=== PATIENT | female | born 1990 | race African-American/Black ===

== ENCOUNTER 2016-07-29 09:21 | Emergency (ER) | payer OTHER ==
[~2016-07-29] VITALS: Ht 152.4 cm; Wt 68.9 kg
--- NOTE | 2016-07-29 09:44 | ED CARDIAC/CP/PALPITATIONS ---
History of Present Illness General Chief Complaint: General Adult Stated Complaint: CHEST PRESSURE, DIZZINESS Allergies Coded Allergies: NO KNOWN ALLERGIES (02/25/12) Triage Note: 26 Y/O FEMALE C/O UPPER CHEST PAIN (CENTER); ONSET THIS AM AND CONSTANT ("SHARP") SINCE ONSET. STATES SHE WAS AT WORK AND FELT VERY DIZZY WELL. CURRENTLY 33 WEEKS , EDC 09/15/16; OB DR CHAVEZ. DENIES ANY BUSINESS LIAISON OFFICER COMPLAINTS. *SPOKE WITH FLOR IN CBC, PT TO REMAIN IN ED; PLEASE CALL CBC BACK IF FHT'S NEEDED Onset: Abrupt Duration: hour(s): (1) Timing: single episode today Quality/Severity: pressure, sharp Location: substernal Radiation: no radiation Activities at Onset: STANDING AT WORK Prior Chest Pain/Card Workup: no prior chest pain Aspirin Today: no aspirin today Associated Symptoms: dizziness, NEAR SYNCOPE : Yes Patient currently breastfeeds: No (YOVANY BRUMFIELD,SEBASTIAN) General Source: patient, family Exam Limitations: no limitations Vital Signs & Intake/Output Vital Signs & Intake/Output Vital Signs Date Time Temp Pulse Resp B/P Pulse O2 O2 Flow FiO2 Ox Delivery Rate 07/29 1544 97.7 74 18 97/77 100 Room Air 07/29 1422 90 16 90/55 99 Room Air 07/29 1224 97.6 83 16 98/62 99 Room Air 07/29 1212 78 16 104/56 100 Room Air 07/29 0932 96.9 80 18 110/76 96 Room Air Reconcile Medications Pnv#26/Iron Poly/FA/Dha (Vitafol-One Capsule) 29 MG IRON-1 MG-200 MG CAPSULE 1 TAB PO DAILY (Reported) Triage Nurses Notes Reviewed? yes HPI: This is a 26-year-old female, , 33 weeks presented to emergency room with chief complaint of chest pain and dizziness. Patient complains of worst chest pain started this morning, substernal, 7/10, sharp, nonradiating to arm or shoulders, lasted for an hour. Associated with shortness of breath, dizziness and lightheadedness. No sweating or diaphoresis. No nausea, vomiting, abdominal pain. She describes this pain as the worst pain ever. Off note she has heartburn and this pain is entirely different for her. She reported one more episode of chest pain on 07/27/2016 morning which lasted for 1 hour, central, sharp, nonradiating, 3/10. She denies any calf tenderness, leg pain, swelling of extremities. offers no other complaints. No vaginal bleed, has been following with her it solutions sales consultant regularly. (AZAR PEREA MD) Past History Travel History Traveled to [place] past 21 day No Medical History Neurological: NONE EENT: NONE Cardiovascular: NONE Respiratory: NONE Gastrointestinal: NONE Hepatic: NONE Renal: NONE Musculoskeletal: NONE Psychiatric: NONE Endocrine: NONE Blood Disorders: NONE Cancer(s): NONE CONTROLS ENGINEER/Reproductive: NONE Surgical History Surgical History: non-contributory Psychosocial History What is your primary language Luxembourgish Tobacco Use: Never used Family History Hx Contributory? No (SEBASTIAN PEDROZA MD) Medical History Any Pertinent Medical History? none Surgical History Surgical History: none Family History Hx Contributory? Yes (AZAR PEREA MD) Review of Systems Review of Systems Constitutional: Denies: chills, diaphoresis, fever, malaise, weakness, unexplained weight loss. EENTM: Denies: double vision, visual changes, eye pain, hearing changes, epistaxis, nasal pain, throat pain. Respiratory: Reports: short of breath. Denies: cough, hemoptysis, orthopnea, sputum production, stridor, wheezing. Cardiovascular: Reports: chest pain. Denies: edema, orthopena, palpitations, peripheral edema, syncope. GI: Denies: constipation, diarrhea. Genitourinary: Denies: frequency, hesitation. Musculoskeletal: Denies: joint pain, muscle pain. Skin: Denies: rash. (AZAR PEREA MD) Physical Exam Core Measures ACS in differential dx? No Severe Sepsis Present: No Septic Shock Present: No (SEBASTIAN PEDROZA MD) Physical Exam General Appearance: well developed/nourished, no apparent distress, alert, awake Head: atraumatic, normal appearance Neck: normal inspection, supple Respiratory: normal breath sounds Cardiovascular: regular rate/rhythm Gastrointestinal: normal bowel sounds, soft, non-tender Extremities: normal inspection, no edema (AZAR PEREA MD) Progress Diagnostic Imaging: Viewed by Me: Radiology Read, CT Scan, Ultrasound. Discussed w/RAD: Radiology Read, CT Scan, Ultrasound. Radiology Impression: PATIENT: NAKUL PEREZ PRESENT AGE: 26 PATIENT ACCOUNT NO: [id number] : 92 LOCATION: [facility] ORDERING PHYSICIAN: AZAR PEREA MD SERVICE DATE: 07/29/16 EXAM TYPE: US - US-EXT BILAT VENOUS DOPPLER EXAMINATION: US TRIPLEX LOWER EXTREMITY, BILATERAL CLINICAL INFORMATION: 33 weeks. Shortness of breath and chest pain. COMPARISON: None. TECHNIQUE: Color-flow triplex imaging with spectral analysis and compression Doppler were performed on the bilateral lower extremities. FINDINGS: Respiratory variation, normal compression and augmented flow are noted throughout the bilateral lower extremities. The visualized common femoral vein, superficial femoral vein, profunda femoral vein, popliteal vein and mid calf peroneal and posterior tibial venous segments show no evidence of deep venous thrombosis. There is no Bland's cyst. IMPRESSION: Normal triplex scan without evidence of deep venous thrombosis involving the bilateral lower extremities. DICTATED BY: SOREN APARICIO MD DATE/TIME DICTATED:07/29/161056 COMMERCIAL ROOFER:ELIZA DATE/TIME TRANSCRIBED:07/29/161056 CONFIDENTIAL, DO NOT COPY WITHOUT APPROPRIATE AUTHORIZATION. <Electronically signed in Other Vendor System> SIGNED BY: SOREN APARICIO MD 07/29/16 1104, PATIENT: NAKUL PEREZ PRESENT AGE: 26 PATIENT ACCOUNT NO: [id number] : 92 LOCATION: [facility] ORDERING PHYSICIAN: SEBASTIAN PEDROZA MD SERVICE DATE: 07/29/16-1252 EXAM TYPE: CAT - CTA CHEST- PULMONARY EMBOLISM EXAMINATION: CT ANGIOGRAM OF THE CHEST WITH CONTRAST (CT PULMONARY ANGIOGRAM FOR PE) CLINICAL INFORMATION: Chest pain, dizziness and shortness of breath at 33 weeks of . COMPARISON: CXR from 07/29/2016 TECHNIQUE: Prior to the examination, Dr. Kern had a conversation with the patient regarding the low radiation risks. Prior to contrast administration, noncontrast localization images were obtained. Subsequently, multidetector volumetric imaging was performed from the thoracic inlet to below the diaphragms following the administration of 61 mL Omnipaque 350 intravenous contrast. No contrast reaction reported. Sagittal, coronal, and MIP oblique sagittal reformatted images were obtained on the CT workstation, uploaded to PACS, and reviewed. Total exam dose-length product 196 mGy-cm FINDINGS: QUALITY OF STUDY/ CONTRAST BOLUS: Excellent. PULMONARY ARTERIES: Pulmonary arteries are normal in caliber. There are no embolic filling defects within the main, lobar or segmental vessels. THORACIC AORTA: Thoracic aorta is normal in caliber; no acute intramural hematoma, aneurysm or dissection. There is a normal branching pattern at the top of the aortic arch. LUNGS AND PLEURA: Trachea and central airways are widely patent and normal in caliber. A small, 0.2 cm subpleural nodule at the posterior right lung apex could represent a lymph node (image 54, series 2). The small pleural-based opacity in the nearby posterior apex could is likely minimal atelectasis. There is a 0.3 cm noncalcified nodule of the right lower lobe ( image 201, series 2). There is a small, 3 mm subpleural nodule of the left lower lobe (image 186, series 2). There is no suspicious appearing lung nodule, mass, pulmonary edema, focal consolidation, pleural effusion or pneumothorax. MEDIASTINUM: Normal heart size. No pericardial effusion. No evidence of septal bowing or right heart strain. The esophagus is unremarkable. The visualized portion of the thyroid gland is normal. LYMPHATICS: No axillary, hilar, mediastinal or internal mammary lymphadenopathy. UPPER ABDOMEN: Unremarkable. No reflux of contrast into the hepatic veins to suggest elevated right heart pressures. OSSEOUS STRUCTURES: No acute or suspicious osseous abnormality. IMPRESSION: 1. No pulmonary embolism. 2. No evidence of pneumonia, pleural effusion or lymphadenopathy. 3. There are a few small (2 mm and 3 mm) noncalcified pulmonary nodules. Based on Fleischner Society guidelines, no follow-up is required for a low-risk patient. Also, follow-up CT studies for small incidentally detected nodules should generally be avoided in young patients unless there are high risk factors. DICTATED BY: GILBERTO HUNTER MD DATE/TIME DICTATED:07/29/161403 COMMERCIAL ROOFER:ELIZA DATE/TIME TRANSCRIBED:07/29/161403 CONFIDENTIAL, DO NOT COPY WITHOUT APPROPRIATE AUTHORIZATION. <Electronically signed in Other Vendor System> SIGNED BY: GILBERTO HUNTER MD 07/29/16 6772 Rhythm Strip: normal sinus rhythm (YOVANY BRUMFIELD,SEBASTIAN) Differential Diagnosis: pulmonary embolism, DVT ACUTE CORONARY SYNDROME HEART BURN, HEART BURN, ACS Plan of Care: Orders Procedure Date/time Status Regular Diet 07/29 D Active URINALYSIS 07/29 1006 Active TROPONIN LEVEL 07/29 1005 Complete D-DIMER 07/29 1005 Complete CBC WITHOUT DIFFERENTIAL 07/29 1005 Complete BASIC ELECTROLYTES PLUS BUN&CR 07/29 1005 Complete EKG 07/29 0928 Active Laboratory Tests 07/29/16 1005: Anion Gap 8, Estimated GFR > 60, BUN/Creatinine Ratio 13.8, Troponin I < 0.01, D -Dimer 396 H, CBC w Diff NO MAN DIFF REQ, RBC 4.73, MCV 72.4 L, MCH 23.3 L, RDW 13.4, MPV 10.0, Gran % 66.3, Lymphocytes % 20.8, Monocytes % 11.6 H, Eosinophils % 1.0, Basophils % 0.3, Absolute Granulocytes 4.8, Absolute Lymphocytes 1.5, Absolute Monocytes 0.8 H, Absolute Eosinophils 0.1, Absolute Basophils 0, PUBS MCHC 32.2 L Diagnostic Imaging: Discussed w/RAD: Ultrasound. Initial ED EKG: normal axis, normal intervals, normal p-waves, normal QRS complex, normal sinus rhythm, NSR, rate (AZAR PEREA MD) Departure Departure Time of Disposition: 1457 Disposition: HOME OR SELF CARE Condition: Stable Clinical Impression Primary Impression: Chest pain at rest Referrals: ADONAY ERWIN MD (PCP/Family) KATHY BRUMFIELD,GABBY Rousseau Additional Instructions: Please follow up with your it solutions sales consultant in the office. Return to the ER for any changing or worsening symptoms. Drink plenty of fluids and get plenty of rest. Departure Forms: Customer Survey General Discharge Information Resident Co-Sign Statement Statement: ED Attending supervision documentation- [X] I saw and evaluated the patient. I have also reviewed all the pertinent lab results and diagnostic results. I agree with the findings and the plan of care as documented in the Resident's documentation. [X] I have reviewed the ED Record and agree with the Resident's documentation. [] Additions or exceptions (if any) to the Resident's note and plan are summarized below: [] (YOVANY BRUMFIELD,SEBASTIAN) Critical Care Note Critical Care Note Critical Care Time: 30-74 min (AZAR PEREA MD)
[2016-07-29] MEDS ORDERED: VITAFOL-ONE CA1 EACH PO (10:16)
[2016-07-29 10:21] LABS: ABSOLUTE BASOPHIL COUNT 0 /CUMM (0.0-0.2); ABSOLUTE EOSINOPHIL COUNT 0.1 /CUMM (0.0-0.7); ABSOLUTE GRANULOCYTE CT 4.8 /CUMM (1.4-6.5); ABSOLUTE LYMPH COUNT 1.5 /CUMM (1.2-3.4); ABSOLUTE MONOCYTE COUNT 0.8 /CUMM (0.10-0.60); BASOPHIL % 0.3 % (0.0-2.0); GRANULOCYTE % 66.3 % (42.2-75.2); HEMATOCRIT 34.2 % (37-47); MEAN CORPUSCULAR HGB 23.3 PG (27.0-31.0); MEAN CORPUSCULAR HGB CONC 32.2 G/DL (33.0-37.0); MEAN CORPUSCULAR VOLUME 72.4 FL (81.0-99.0); PLATELET COUNT 155 /CUMM (130-400); RBC DISTRIBUTION WIDTH 13.4 % (11.5-14.5); RED BLOOD CELL CT 4.73 /CUMM (4.20-5.40); WHITE BLOOD CELL COUNT 7.3 /CUMM (4.8-10.8)
--- NOTE | 2016-07-29 11:04 | ULTRASOUND REPORT ---
EXAMINATION: US TRIPLEX LOWER EXTREMITY, BILATERAL CLINICAL INFORMATION: 33 weeks. Shortness of breath and chest pain. COMPARISON: None. TECHNIQUE: Color-flow triplex imaging with spectral analysis and compression Doppler were performed on the bilateral lower extremities. FINDINGS: Respiratory variation, normal compression and augmented flow are noted throughout the bilateral lower extremities. The visualized common femoral vein, superficial femoral vein, profunda femoral vein, popliteal vein and mid calf peroneal and posterior tibial venous segments show no evidence of deep venous thrombosis. There is no Bland's cyst. IMPRESSION: Normal triplex scan without evidence of deep venous thrombosis involving the bilateral lower extremities.
--- NOTE | 2016-07-29 12:48 | RADIOLOGY REPORT ---
EXAMINATION: XR CHEST CLINICAL INFORMATION: Shortness of breath and chest pain, 33 weeks COMPARISON: None. TECHNIQUE: PA and lateral views of the chest were obtained. FINDINGS: No significant abnormality is noted involving the heart, lungs, mediastinum, bony thorax, or soft tissues. IMPRESSION: Unremarkable examination.
--- NOTE | 2016-07-29 14:22 | CT SCAN REPORT ---
EXAMINATION: CT ANGIOGRAM OF THE CHEST WITH CONTRAST (CT PULMONARY ANGIOGRAM FOR PE) CLINICAL INFORMATION: Chest pain, dizziness and shortness of breath at 33 weeks of . COMPARISON: CXR from 07/29/2016 TECHNIQUE: Prior to the examination, Dr. Kern had a conversation with the patient regarding the low radiation risks. Prior to contrast administration, noncontrast localization images were obtained. Subsequently, multidetector volumetric imaging was performed from the thoracic inlet to below the diaphragms following the administration of 61 mL Omnipaque 350 intravenous contrast. No contrast reaction reported. Sagittal, coronal, and MIP oblique sagittal reformatted images were obtained on the CT workstation, uploaded to PACS, and reviewed. Total exam dose-length product 196 mGy-cm FINDINGS: QUALITY OF STUDY/CONTRAST BOLUS: Excellent. PULMONARY ARTERIES: Pulmonary arteries are normal in caliber. There are no embolic filling defects within the main, lobar or segmental vessels. THORACIC AORTA: Thoracic aorta is normal in caliber; no acute intramural hematoma, aneurysm or dissection. There is a normal branching pattern at the top of the aortic arch. LUNGS AND PLEURA: Trachea and central airways are widely patent and normal in caliber. A small, 0.2 cm subpleural nodule at the posterior right lung apex could represent a lymph node (image 54, series 2). The small pleural-based opacity in the nearby posterior apex could is likely minimal atelectasis. There is a 0.3 cm noncalcified nodule of the right lower lobe (image 201, series 2). There is a small, 3 mm subpleural nodule of the left lower lobe (image 186, series 2). There is no suspicious appearing lung nodule, mass, pulmonary edema, focal consolidation, pleural effusion or pneumothorax. MEDIASTINUM: Normal heart size. No pericardial effusion. No evidence of septal bowing or right heart strain. The esophagus is unremarkable. The visualized portion of the thyroid gland is normal. LYMPHATICS: No axillary, hilar, mediastinal or internal mammary lymphadenopathy. UPPER ABDOMEN: Unremarkable. No reflux of contrast into the hepatic veins to suggest elevated right heart pressures. OSSEOUS STRUCTURES: No acute or suspicious osseous abnormality. IMPRESSION: 1. No pulmonary embolism. 2. No evidence of pneumonia, pleural effusion or lymphadenopathy. 3. There are a few small (2 mm and 3 mm) noncalcified pulmonary nodules. Based on Fleischner Society guidelines, no follow-up is required for a low-risk patient. Also, follow-up CT studies for small incidentally detected nodules should generally be avoided in young patients unless there are high risk factors.
[2016-07-29 15:44] VITALS: BP 97/77
== END 2016-07-29 15:45 ==
LOC: ERH 09:21
DX: O99.89 Other specified diseases and conditions complicating pregnancy, childbirth and the puerperium (principal); R07.9 Chest pain, unspecified; R42 Dizziness and giddiness; Z3A.33 33 weeks gestation of pregnancy
CPT/HCPCS: 82436; 93005; 93010; 93970

== ENCOUNTER 2016-09-22 09:34 | Inpatient (IN) | payer OTHER ==
[~2016-09-22] VITALS: Ht 152.4 cm; Wt 72.6 kg
[~2016-09-22 09:34] MED LIST: VITAFOL-ONE CA1 EACH PO
--- NOTE | 2016-09-22 10:46 | History & Physical ---
General Information and HPI MD Statement: I have seen and personally examined NAKUL PEREZ and documented this H&P. The patient is a 26 year old female at 41[] weeks and 1[] days gestation who presented with a chief complaint of [INDUCTION]. History of Present Illness: 25 AT 41 WEEKS Allergies/Medications Allergies: Coded Allergies: NO KNOWN ALLERGIES (09/22/16) Home Med list Pnv#26/Iron Poly/FA/Dha (Vitafol-One Capsule) 29 MG IRON-1 MG-200 MG CAPSULE 1 TAB PO DAILY (Reported) Past History pickers material handlers History : 1 Para: 0 Last Menstrual Period: 12/06/15 Past pickers material handlers History: none Medical History Neurological: NONE EENT: NONE Cardiovascular: NONE Respiratory: NONE Gastrointestinal: NONE Hepatic: NONE Renal: NONE Musculoskeletal: NONE Psychiatric: NONE Endocrine: NONE Blood Disorders: NONE Cancer(s): NONE SWIMMING POOL CLEANER/Reproductive: NONE Surgical History Pertinent Surgical History: none Review of Systems Review of Systems: STATED IN HPI Exam & Diagnostic Data Obstetric Exam Wgt Gained During : 44 Pelvimetry: UNTESTED Dilation (cm): 2 Effacement (%): 90 Station: 0 Membranes: AROM Fluid: clear Fundal Height (cm): 39 Multiple Gestation? No Contractions: IRREG Patient for Induction? Yes Cottrell Score Cottrell Score Response Value Cervix Position: mid-position 1 Cervix Consistency: soft 2 Cervix Effacement: >80% 3 Cervix Dilation: 1-2 cm 1 Total 7 Physical Exam: PE PLEASANT HF HEENT OPERRLA EOMI IN NAD ABD SOFT NT [id number] Labs Blood Type & Rh: O NEGATIVE Antibody Screen: NEG Hct/Hgb & Platelets #1: 193 Hct/Hgb & Platelets #2: /165 Rubella: IMMUNE VDRL #1: NR VDRL #2: NR HbsAg: NEGNEG HIV #1: NEGNEG HIV #2 NEG 1 Hr P Group B Strep: NEG Initial Ultrasound: NL Anatomy Ultrasound: NL Genetic Testing: NL Assessment/Plan As Ranked By This Provider Problem List: 1. Core Measures/Miscellaneous Venous Thromboembolism VTE Risk Factors: No Risk Factors VTE Contraindications: No Contraindications VTE Diagnosis: No Beta Paola Is Beta Paola a Home Med? No Antibiotics Is Patient on Antibiotics? No Attending MD Review Statement Attending Statement Attending MD Statement: examined this patient
[2016-09-22 10:55] LABS: ABSOLUTE BASOPHIL COUNT 0 /CUMM (0.0-0.2); ABSOLUTE EOSINOPHIL COUNT 0 /CUMM (0.0-0.7); ABSOLUTE GRANULOCYTE CT 4.7 /CUMM (1.4-6.5); ABSOLUTE LYMPH COUNT 1.3 /CUMM (1.2-3.4); ABSOLUTE MONOCYTE COUNT 0.7 /CUMM (0.10-0.60); BASOPHIL % 0.2 % (0.0-2.0); EOSINOPHIL % 0.4 % (0-5); GRANULOCYTE % 69.6 % (42.2-75.2); HEMATOCRIT 37.2 % (37-47); MEAN CORPUSCULAR HGB 22.9 PG (27.0-31.0); MEAN CORPUSCULAR HGB CONC 31.8 G/DL (33.0-37.0); MEAN PLATELET VOLUME 10.4 FL (7.4-10.4); PLATELET COUNT 156 /CUMM (130-400); RBC DISTRIBUTION WIDTH 13.9 % (11.5-14.5); RED BLOOD CELL CT 5.17 /CUMM (4.20-5.40); WHITE BLOOD CELL COUNT 6.8 /CUMM (4.8-10.8)
--- NOTE | 2016-09-22 18:05 | Labor & Delivery Summary ---
Delivery Summary Section: Section: primary Indication: NON REASSSURING TRACING Anesthesia: EPIDURAL WITH NARCOTIC Episiotomy/Lacerations: Episiotomy/Lacerations: none Placenta: Placenta: normal, 3 vessel, manual, SHORT CORD
--- NOTE | 2016-09-22 18:11 | Operative Report ---
Operative/Inv Procedure Report Surgery Date: 09/22/16 Name of Procedure: Primary low flap transverse section via Pfannenstiel skin incision Pre-Operative Diagnosis: Term failed induction nonreassuring heart tracing with variable decelerations with late components Post-Operative Diagnosis: Same short cord Estimated Blood Loss: 500 Surgeon/Professional Services Specialist: KATHY BRUMFIELD,GABBY Rousseau and Dr. Rahul Layne [facility] Anesthesia: block Operative/Procedure Note Note: Procedure note patient was taken the operating room placed supine position after adequate anesthesia patient placed in dorsolithotomy position the vagina from dorsal fashion bladder was catheterized examination under anesthesia was performed patient was returned spine position the abdomen was prepped and draped so fashion after adequate skin testing for surgery skin was cut 2 finger breadths of symptoms pubis carried down to rectus fascia which was cut in curvilinear fashion I direction peritoneal cavity was entered high into the abdomen at this point the the low bladed [place] was placed and lower and incision the visceral peritoneum of the uterus was dissected bluntly as well as sharply off of the lower uterine segment to develop a bladder flap in the lower uterine segment uterus was nicked into with back of knife dissected bluntly as well as sharply on since removed from the field the was delivered onto the abdominal wall the cord was doubly clamped and cut the placenta was delivered manually noted to be intact was wiped wiped clean with 2 wet dry laps to ensure was free of adherent membranes. The uterus was oversewn running locking suture 2 intravenous Pitocin and intramyometrial Pitocin was used to aid in uterine contractility. Peritoneum was reapproximated using 0 the fascia was reapproximated to continue sutures #1 subcutaneous tissue was Bovie coagulated found to be hemostatic the skin was reapproximated using sobeida at the end the case the counts correct urine was clear all instrument counts were correct mother and was transported to recovery room awake and alert
[2016-09-23 08:51] LABS: ABSOLUTE BASOPHIL COUNT 0 /CUMM (0.0-0.2); ABSOLUTE EOSINOPHIL COUNT 0 /CUMM (0.0-0.7); ABSOLUTE GRANULOCYTE CT 6.3 /CUMM (1.4-6.5); ABSOLUTE LYMPH COUNT 1.1 /CUMM (1.2-3.4); ABSOLUTE MONOCYTE COUNT 0.7 /CUMM (0.10-0.60); BASOPHIL % 0.3 % (0.0-2.0); EOSINOPHIL % 0.1 % (0-5); GRANULOCYTE % 77.2 % (42.2-75.2); HEMATOCRIT 35.4 % (37-47); MEAN CORPUSCULAR HGB 22.9 PG (27.0-31.0); MEAN CORPUSCULAR HGB CONC 31.8 G/DL (33.0-37.0); MEAN CORPUSCULAR VOLUME 72.2 FL (81.0-99.0); PLATELET COUNT 145 /CUMM (130-400); RBC DISTRIBUTION WIDTH 14.1 % (11.5-14.5); RED BLOOD CELL CT 4.91 /CUMM (4.20-5.40); WHITE BLOOD CELL COUNT 8.2 /CUMM (4.8-10.8)
--- NOTE | 2016-09-23 09:54 | PN- Post Delivery/GYN ---
Subjective Subjective: POD1; NO C/O Review of Systems: NO FLATUS Objective Last 24 Hrs of Vital Signs/I&O VSS Physical Exam: INCISION C/D/I EXT NT Assessment/Plan Assessment/Plan S/P C/S POD1 STAABLE D/C SIFUENTES ADVANCE DIET INCREASE ACTIVITY Problem List: 1.
--- NOTE | 2016-09-24 10:34 | PN- Post Delivery/GYN ---
Subjective Subjective: NO COMPLAINTS Objective Last 24 Hrs of Vital Signs/I&O VSS ABD SOFT NT INCISION CDI EXT +2EDEMA-HOMNAS Assessment/Plan Assessment/Plan ASSESS S/PC/S PLAN CONT PPC
[2016-09-25] MEDS ORDERED: IBUPROFEN800 M1 PO (00:29)
[2016-09-25] MEDS ORDERED: PERCOCET 5-3251 EACH PO (00:29)
--- NOTE | 2016-10-06 17:59 | Surgical Discharge Summary ---
Visit Information Visit Dates Admission Date: 09/22/16 Discharge Date: 09/25/16 History of Present Illness Chief Complaint: induction of labor Medical History Neurological: NONE EENT: NONE Cardiovascular: NONE Respiratory: NONE Gastrointestinal: NONE Hepatic: NONE Renal: NONE Musculoskeletal: NONE Psychiatric: NONE Endocrine: NONE Blood Disorders: NONE Cancer(s): NONE HEALTH AND SAFETY SPECIALIST/Reproductive: NONE Influenza Vaccine: 09/25/16 Surgical History Pertinent Surgical History: none Psychosocial History What is Your Primary Language? Montenegrin Review of Systems: 13 point review of systems as stated in the [facility] Hospital Course Course Attending Physician: GABBY CHAVEZ MD Primary Care Physician: YAIMA BRUMFIELD,[facility] Course: Patient admitted for induction of labor progressed to 4-5 cm without any further dilatation plans made for section Allergies: Coded Allergies: NO KNOWN ALLERGIES (09/22/16) Disposition Summary Disposition Principal Diagnosis: Term arrest of labor Additional Diagnosis: Anemia Discharge Disposition: home or self care Discharge Instructions General Discharge Information Code Status: Full Code Patient's Diet: Regular Patient's Activity: Pelvic rest no heavy lifting greater than 15 pounds for 6 weeks Follow-Up Instructions/Appts: My office 2 weeks sobeida to be removed within the week at return visit Medications at Discharge Discharge Medications: Continue taking these medications: Pnv#26/Iron Poly/FA/Dha (Vitafol-One Capsule) 29 MG IRON-1 MG-200 MG CAPSULE 1 Tablet ORAL DAILY Qty = 30 Start taking the following new medications: Ibuprofen (Ibuprofen) 800 MG TABLET 800 Milligram ORAL EVERY SIX HOURS NEEDED as needed for UTERINE CRAMPING Qty = 30 No Refills Comments: Last Taken:09/25/16 Time:0945 Oxycodone HCl/Acetaminophen (Percocet 5-325 MG Tablet) 5 MG-325 MG TABLET 1 Tablet ORAL EVERY 4 HOURS NEEDED as needed for PAIN SCALE 4-6 (MODERATE ) Qty = 30 No Refills
== END 2016-09-25 12:15 | DRG 540 ==
LOC: GNO 09:34
PROVIDERS: ADMIT Specialist
PROC: 10D00Z1 Extraction of Products of Conception, Low, Open Approach (ICD-10-PCS; principal; 2016-09-22)
DX: O76 Abnormality in fetal heart rate and rhythm complicating labor and delivery (principal); Z3A.41 41 weeks gestation of pregnancy; Z37.0 Single live birth
CPT/HCPCS: GNOS; 36415; 81001; 87086; 88307; J0690; J1170; J1650; J1885; J7120; Q2036